=== PATIENT | female | born 1945 | race Caucasian/White ===

== ENCOUNTER → 2017-04-20 | Outpatient (CLI) | payer MEDICARE ==
[~2017-04-20] MED LIST: ASCO500T20 PO; ASP325TEC PO; ASP81CT PO; ASP81TEC PO; ATOR80TA PO; BACL20TA PO; BIMA2.5D4 OU; BNZ10T PO; BUPR150T PO; CHOL400C8 PO; CLPD75T PO; CYAN10007 PO; DCS100C PO; DICL75TA2 PO; DORZ10DR19 OU; FERR-57 PO; FLUT16SP22 NS; FOLI0.4T2 PO; KRIL1CAP12 PO; METO50TA7 PO; MISO200T4 PO; OMEP20CA6 PO; PRAV40TA PO; PRED5DRO2I OU; TRAM50TA2 PO; TRAV0.004S OU; [UNRECOGNIZED DRUG - REMARK]
[2017-04-20 11:54] LABS: BASOPHILS % (AUTO) 1 % (0-10); EOSINOPHILS # (AUTO) 0.1 10^3/uL (0.0-0.3); EOSINOPHILS % (AUTO) 2 % (0-10); LYMPHOCYTES # (AUTO) 0.5 X 10^3 (1.0-4.0); LYMPHOCYTES % (AUTO) 8 % (12-44); MEAN CORPUSCULAR HEMOGLOBIN 30 PG (25-34); MEAN CORPUSCULAR HGB CONC 32 G/DL (32-36); MEAN CORPUSCULAR VOLUME 95 FL (80-99); MEAN PLATELET VOLUME 10.7 FL (7.4-10.4); MONOCYTES # (AUTO) 0.8 X 10^3 (0.0-1.0); MONOCYTES % (AUTO) 12 % (0-12); NEUTROPHILS # (AUTO) 5.2 X 10^3 (1.8-7.8); NEUTROPHILS % (AUTO) 79 % (42-75); PLATELET COUNT 175 10^3/uL (130-400); RED BLOOD COUNT 4.47 10^6/uL (4.35-5.85); RED CELL DISTRIBUTION WIDTH 18.5 % (10.0-14.5); WHITE BLOOD COUNT 6.6 10^3/uL (4.3-11.0)
[2017-04-20 12:19] LABS: EOSINOPHILS % (MANUAL) 4 %; ERYTHROCYTE SEDIMENTATION RATE 57 MM/HR (0-30); LYMPHOCYTES % (MANUAL) 8 %; NEUTROPHILS % (MANUAL) 76 %
[2017-04-20 12:24] LABS: ALANINE AMINOTRANSFERASE 17 U/L (0-55); ALBUMIN 3.2 G/DL (3.2-4.5); ANION GAP 8 MMOL/L (5-14); ASPARTATE AMINO TRANSFERASE 19 U/L (5-34); BILIRUBIN,TOTAL 0.5 MG/DL (0.1-1.0); BLOOD UREA NITROGEN 35 MG/DL (7-18); BUN/CREATININE RATIO 56; CALCIUM 9.1 MG/DL (8.5-10.1); CARBON DIOXIDE 31 MMOL/L (21-32); CHLORIDE 102 MMOL/L (98-107); CREATININE SERUM 0.63 MG/DL (0.60-1.30); GFR ESTIMATED > 60; GLUCOSE 88 MG/DL (70-105); MAGNESIUM 2.2 MG/DL (1.8-2.4); POTASSIUM 4.4 MMOL/L (3.6-5.0); SODIUM 141 MMOL/L (135-145); TOTAL PROTEIN 6.8 G/DL (6.4-8.2)
[2017-04-20 12:44] LABS: THYROID STIMULATING HORMONE 0.77 UIU/ML (0.35-4.94)
== END ==
LOC: LAB 11:30
PROVIDERS: ATTEND Internal Medicine Cardiovascular Disease
DX: R06.02 Shortness of breath (principal); R07.89 Other chest pain; I25.10 Atherosclerotic heart disease of native coronary artery without angina pectoris; I65.23 Occlusion and stenosis of bilateral carotid arteries; G93.5 Compression of brain; I48.0 Paroxysmal atrial fibrillation; Z95.1 Presence of aortocoronary bypass graft
CPT/HCPCS: 36415; 80053; 83735; 84443; 85007; 85027; 85652

== ENCOUNTER → 2017-05-02 | Outpatient (CLI) | payer MEDICARE ==
--- NOTE | 2017-05-04 06:37 | ECHOCARDIOGRAPHY REPORT ---
DATE OF SERVICE: 05/02/2017 ECHOCARDIOGRAM PROCEDURE PERFORMED: Echocardiography report. ORDERING PHYSICIAN: Dr. Duncan. PRIMARY PHYSICIAN: Dr. Guerra. CLINICAL DIAGNOSIS: Chest discomfort, shortness of breath. MEASUREMENTS: Aortic root 3.5, LV diameter diastolic 4.9, IVS thickness, diastolic 0.8. LVPW thickness 0.8, left atrium 5.2. DESCRIPTION: Two dimensional echocardiography shows well-preserved global left ventricular systolic function. No distinct regional wall motion abnormalities seen. Left ventricular ejection fraction is approximately 55%. There is moderate mitral annular calcification and moderate aortic valve sclerosis. Aortic, mitral and tricuspid valve leaflets show fair to good leaflet excursion. There is no significant pericardial effusion. Doppler imaging shows moderate mitral and tricuspid regurgitation. Pulmonary artery systolic pressure is estimated at approximately 75 mmHg. There is no Doppler evidence of significant valvular stenosis. Peak pressure gradient across the aortic valve is 28 mmHg with mean gradient of approximately 14 mmHg and aortic valve area of approximately 1.5 sq cm. Doppler imaging also shows moderate mitral regurgitation. There is no Doppler evidence of any significant mitral stenosis. There is marked biatrial enlargement. Inferior vena cava appears mildly dilated but does exhibit inspiratory collapse. CONCLUSIONS: 1. Pulmonary hypertension with an estimated pulmonary systolic pressure of approximately 75 mmHg. 2. Global left ventricular systolic function with ejection fraction approximately 55%. 3. Moderate mitral annular calcification without evidence of mitral stenosis. 4. Aortic valve sclerosis and mild aortic stenosis with a valve area of approximately 1.5 sq cm. 5. Moderate mitral and tricuspid regurgitation. Job ID: [id number] DocumentID: [id number] Dictated Date: 05/03/2017 14:17:50 Engineer System Administrator Date: 05/03/2017 15:22:16 Dictated By: SCOTT DUNCAN MD, MA, FACP, FACC,
== END ==
LOC: CARD 09:17
PROVIDERS: ATTEND Internal Medicine Cardiovascular Disease
DX: R07.89 Other chest pain (principal); R06.02 Shortness of breath; I25.10 Atherosclerotic heart disease of native coronary artery without angina pectoris; I65.23 Occlusion and stenosis of bilateral carotid arteries; G93.5 Compression of brain; I48.0 Paroxysmal atrial fibrillation; Z95.1 Presence of aortocoronary bypass graft
CPT/HCPCS: 93306

== ENCOUNTER → 2017-05-03 | Outpatient (CLI) | payer MEDICARE ==
[~2017-05-03] MED LIST changes: +CATHETER FLUSH 10 ML SYR IV PRN; +REGADENOSON 0.4 MG/5 ML SYR (LEXISCAN) IV ONE
[2017-05-03 09:36] VITALS: BP 162/78
--- NOTE | 2017-05-04 13:38 | STRESS TEST ---
DATE OF SERVICE: 05/03/2017 RESTING AND POST REGADENOSON TECHNETIUM 99M TETROFOSMIN SPECT CT IMAGING ORDERING PHYSICIAN: Dr. Duncan. PRIMARY PHYSICIAN: Dr. Bingham. CLINICAL DIAGNOSES: Chest discomfort, shortness of breath, and coronary artery disease. Resting images were carried out after injection of 10.94 mCi technetium-99m tetrofosmin. Subsequently, we gave 0.4 mg regadenoson which was followed by 30 mCi technetium-99m tetrofosmin for stress imaging. The electrocardiogram showed sinus rhythm with incomplete right bundle branch block throughout the study. The electrocardiogram did not change significantly with the regadenoson infusion. She tolerated the procedure well. Review of images at rest and following stress does not indicate any distinct perfusion defects consistent with significant myocardial ischemia or infarction. Some degree of diaphragmatic attenuation of the inferior wall is seen both at rest and following regadenoson infusion. Gated images show normal regional wall motion and normal global left ventricular systolic function. Left ventricular ejection fraction is calculated to be 69%. Left ventricular end-diastolic volume is 71 mL. TID is absent (1.09). CONCLUSIONS: 1. No evidence of any significant myocardial ischemia or infarction on this study. 2. Normal regional wall motion. 3. Normal global left ventricular systolic function with a calculated ejection fraction of 69%. Job ID: [id number] DocumentID: [id number] Dictated Date: 05/04/2017 09:34:52 Clinical Studies Specialist Date: 05/04/2017 10:57:08 Dictated By: SCOTT DUNCAN MD, MA, FACP, FACC,
== END ==
LOC: CARD 07:21
PROVIDERS: ATTEND Internal Medicine Cardiovascular Disease
DX: I48.0 Paroxysmal atrial fibrillation (principal); R07.89 Other chest pain; R06.02 Shortness of breath; I25.10 Atherosclerotic heart disease of native coronary artery without angina pectoris; I65.23 Occlusion and stenosis of bilateral carotid arteries; G93.5 Compression of brain; Z95.1 Presence of aortocoronary bypass graft
CPT/HCPCS: 78452; 93017

== ENCOUNTER → 2017-05-17 | Outpatient (CLI) | payer MEDICARE ==
[~2017-05-17] MED LIST changes: -CATHETER FLUSH 10 ML SYR IV PRN; -REGADENOSON 0.4 MG/5 ML SYR (LEXISCAN) IV ONE
--- NOTE | 2017-05-17 12:41 | Diagnostic Imaging Report ---
EXAMINATION: AP and lateral views of the chest. INDICATION: Shortness of breath. Pulmonary hypertension. FINDINGS: The heart is markedly enlarged. There is pulmonary vascular congestion. Moderate bilateral effusions are present with bibasilar opacities, presumably atelectasis from the effusions. There is no pneumothorax. Sternotomy wires are seen. IMPRESSION: Marked cardiomegaly with pulmonary vascular congestion. There are moderate bilateral pleural effusions with associated lower lobe opacities, presumably related to atelectasis. Dictated by: Dictated on workstation # [id number]
== END ==
LOC: RAD 11:00
PROVIDERS: ATTEND Nurse Practitioner Family
DX: I51.7 Cardiomegaly (principal); J90 Pleural effusion, not elsewhere classified; R06.02 Shortness of breath; I27.2 Other secondary pulmonary hypertension
CPT/HCPCS: 71020

== ENCOUNTER → 2020-05-20 | Outpatient (CLI) | payer MEDICARE ==
[~2020-05-20] VITALS: Ht 167 cm; Wt 74.0 kg
[~2020-05-20] MED LIST changes: +CATHETER FLUSH 10 ML SYR IV PRN; +REGADENOSON 0.4 MG/5 ML SYR (LEXISCAN) IV ONE
[2020-05-20 12:27] VITALS: BP 132/88
[2020-05-20 12:30] VITALS: BP 130/84
--- NOTE | 2020-05-20 15:53 | STRESS TEST ---
DATE OF SERVICE: 05/20/2020 RESTING AND POST REGADENOSON TECHNETIUM-99M TETROFOSMIN SPECT CT IMAGING ORDERING PHYSICIAN. Dr. Bingham. CLINICAL DIAGNOSES: Coronary artery disease. Baseline images were carried out after injection of 10.68 mCi of technetium-99m Tetrofosmin. This was followed by 0.4 regadenoson and 29.7 mCi of technetium-99m Tetrofosmin for stress imaging. The electrocardiogram showed sinus rhythm at baseline. It did not change significantly with the regadenoson infusion. Review of images at rest and following stress does not indicate any significant perfusion defects consistent with myocardial ischemia or infarction. Gated images show normal global left ventricular systolic function with normal regional wall motion. Left ventricular ejection fraction is calculated to be 72%. Left ventricular end diastolic volume is 61 mL. TID is absent (1). CONCLUSIONS: 1. No evidence of any significant myocardial ischemia or infarction. 2. Normal regional wall motion. 3. Normal global left ventricular systolic function with a calculated ejection fraction of 72%. Job ID: [id number] DocumentID: [id number] Dictated Date: 05/20/2020 15:30:39 Electroplating Technician Date: 05/20/2020 15:52:46 Dictated By: SCOTT DAVIES MD, MA, FACP, FACC,
== END ==
LOC: CARD 10:33
PROVIDERS: ATTEND Nurse Practitioner Family
DX: I25.10 Atherosclerotic heart disease of native coronary artery without angina pectoris (principal); I70.0 Atherosclerosis of aorta; I35.1 Nonrheumatic aortic (valve) insufficiency; I77.89 Other specified disorders of arteries and arterioles; I48.0 Paroxysmal atrial fibrillation; G47.33 Obstructive sleep apnea (adult) (pediatric)
CPT/HCPCS: 78452; 93017; 93306; A9502

== ENCOUNTER → 2021-11-05 | Outpatient (CLI) | payer MEDICARE ==
[~2021-11-05] MED LIST changes: -CATHETER FLUSH 10 ML SYR IV PRN; -REGADENOSON 0.4 MG/5 ML SYR (LEXISCAN) IV ONE
== END ==
LOC: CARD 14:00
PROVIDERS: ATTEND Nurse Practitioner Family
DX: I08.3 Combined rheumatic disorders of mitral, aortic and tricuspid valves (principal)
CPT/HCPCS: 93306

== ENCOUNTER 2021-12-15 08:00 | Day surgery (SDC) | payer MEDICARE ==
[~2021-12-15] VITALS: Ht 165.1 cm; Wt 68.5 kg
[2021-12-15] VITALS (10 sets, daily range): BP systolic 113–171; BP diastolic 57–87
[2021-12-15 07:36] LABS: HEMOGLOBIN 11.7 g/dL (11.5-16.0); MEAN PLATELET VOLUME 11.4 fL (9.0-12.2); WHITE BLOOD COUNT 4.4 10^3/uL (4.3-11.0)
[2021-12-15 07:46] LABS: INR 0.9 (0.8-1.4); PROTHROMBIN TIME PATIENT 12.2 SEC (12.2-14.7)
[2021-12-15 07:52] LABS: ALBUMIN 3.8 GM/DL (3.2-4.5); BILIRUBIN,TOTAL 0.3 MG/DL (0.1-1.0); CALCIUM 8.9 MG/DL (8.5-10.1); CREATININE SERUM 0.96 MG/DL (0.60-1.30); POTASSIUM 4.3 MMOL/L (3.6-5.0); TOTAL PROTEIN 6.8 GM/DL (6.4-8.2)
[~2021-12-15 08:00] MED LIST changes: +HEParin (CATH LAB) 2,000 ML IV ONE; +LIDOCAINE 1% INJ 20 ML VIAL ONE; +MIDAZOLAM 5 MG/5 ML (VERSED) VIAL ONE; +NS IV 1000 ML 1,000 ML IV SCH; +NS IV 1000 ML 1,000 ML ONE; +fentaNYL INJ 100 MCG/2 ML AMP ONE
[2021-12-15] MEDS ORDERED: [UNRECOGNIZED DRUG - OTHER] XX (08:01)
[2021-12-15] MEDS ORDERED: ZINC50TA51 PO (08:01)
[2021-12-15] MEDS ORDERED: MELA3TAB41 PO (08:01)
[2021-12-15] MEDS ORDERED: [UNRECOGNIZED DRUG - OTHER] PO (08:01)
[2021-12-15] MEDS ORDERED: ALEN70TA80 PO (08:01)
[2021-12-15] MEDS ORDERED: GABA-486 PO (08:01)
[2021-12-15] MEDS ORDERED: FURO40TA4 PO (08:01)
[2021-12-15] MEDS ORDERED: AMIO400T5 PO (08:01)
[2021-12-15] MEDS ORDERED: POTA8CAP20 PO (08:01)
[2021-12-15] MEDS ORDERED: DORZ10DR22 OU (08:01)
[2021-12-15] MEDS ORDERED: BACI1TAB3 PO (08:01)
[2021-12-15] MEDS ORDERED: CLN.1T PO (08:01)
[2021-12-15] MEDS ORDERED: CALC1TAB PO (08:01)
[2021-12-15] MEDS ORDERED: UBID100C17 PO (08:01)
[2021-12-15] MEDS ORDERED: ASPI-1238 PO (08:01)
[2021-12-15] MEDS ORDERED: B6/F1CAP PO (08:01)
[2021-12-15] MEDS ORDERED: POTA10CA43 PO (10:29)
[2021-12-15] MEDS ORDERED: FURO80TA3 PO (10:29)
[2021-12-15] MEDS ORDERED: PATIENT MAY USE OWN MEDS, ALL PO SCH (10:30)
[2021-12-15] MEDS ORDERED: NS IV 1000 ML 1,000 ML IV SCH (10:30)
--- NOTE | 2021-12-15 10:34 | Discharge Inst-Cardiology ---
Discharge Inst-Cardiac Discharge Medications New Medications: Furosemide (Furosemide) 80 Mg Tablet 80 MG PO DAILY for 30 Days, #30 TAB 3 Refills Potassium Chloride (Potassium Chloride) 10 Meq Capsule.er 10 MEQ PO BID for 30 Days, #60 CAP 3 Refills Continued Medications: Alendronate Sodium (Alendronate Sodium) 70 Mg Tablet 70 MG PO WEEK, TAB Amiodarone HCl (Amiodarone HCl) 400 Mg Tablet 400 MG PO DAILY, TAB Ascorbic Acid (Vitamin C 500 Mg) 500 Mg Tablet 500 MG PO DAILY Aspirin (Aspirin EC) 81 Mg Tablet.dr 81 MG PO DAILY, TAB B6/Folic/B12/Coffee/Phosphatid (Neuriva Plus Brain Perform Cap) 1 Each Capsule 1 EACH PO DAILY, CAP Bacillus Coagulans (Probiotic) 1 Each Tab.chew 2 TAB PO DAILY, TAB Baclofen (Baclofen) 20 Mg Tablet 20 MG PO TID Benazepril Hcl (Lotensin 10 Mg) 10 Mg Tablet 10 MG PO DAILY Bimatoprost (Lumigan) 2.5 Ml Drops 1 DROP OU HS 0.005% Calcium Carbonate/Vitamin D3 (Caltrate 600 + D Tablet) 1 Each Tablet 1 EACH PO DAILY, TAB Clonidine HCl (Clonidine HCl) 0.1 Mg Tablet 0.1 MG PO PRN, TAB [Cortia Xt] () 120 MG PO DAILY Cyanocobalamin (Vitamin B12) 1,000 Mcg Tablet.sa 1000 MCG PO DAILY Docusate Sodium (Colace) 100 Mg Capsule 100 MG PO BID Dorzolamide HCl/Timolol Maleat (Cosopt Eye Drops) 10 Ml Drops 1 DROP OU BID, DROPS Ferrous Sulfate (Ferrous Sulfate) 325 Mg Tablet 325 MG PO DAILY Folic Acid (Folic Acid) 0.4 Mg Tablet 0.4 MG PO DAILY Gabapentin (Gabapentin) 100 Mg Capsule 100 MG PO PRN for Neuropathic pain, CAP Krill/Odd-3/Dha/Epa/Lipids (Krill Oil 300 Mg Softgel) 1 Each Capsule 300 MG PO DAILY Melatonin (Melatonin) 3 Mg Tablet.er 3 MG PO HS, TAB Omeprazole (Prilosec) 20 Mg Capsule.dr 40 MG PO DAILY TAKES 2 (20MG) CAPSULES DAILY Pravastatin Sodium (Pravachol) 40 Mg Tablet 40 MG PO HS Prednisolone Acetate (Pred Forte 1%) 5 Ml Drops.susp 1 DROP OU DAILY Tramadol Hcl (Tramadol Hcl) 50 Mg Tablet 50 MG PO QID Ubidecarenone (Coq-10) 100 Mg Capsule 100 MG PO DAILY, CAP Zinc Amino Acid Chelate (Zinc) 50 Mg Tablet 50 MG PO DAILY, TAB Discontinued Medications: Diclofenac Sodium (Diclofenac Sodium) 75 Mg Tablet.dr 75 MG PO TID Furosemide (Furosemide) 40 Mg Tablet 40 MG PO DAILY, TAB Potassium Chloride (Potassium Chloride) 8 Meq Capsule.er 16 MEQ PO DAILY AFTER [place] PULLIAM ALI MD FACP FAC CCDS Dec 15, 2021 10:34
--- NOTE | 2021-12-15 10:35 | Discharge Inst-Post CATH ---
Discharge Inst-CATH/EP Post Cardiac Cath/EP D/C Inst Follow Up/Plan F/u with Dr Duncan in one week ACTIVITY * Go Home directly and rest. * Limit activity of the leg (or wrist if it was used) for 7 days including aerobics, swimming, jogging, bicycling, etc. * Restrict stair-climbing for 7 days if possible, if not, climb up with your non-cath leg, then bring together on the same step. * Avoid lifting, pushing, pulling or excessive movement of the affected e xtremity for 7 days. * Customary sexual activity may be resumed after 2 days-use caution not to use a position that strains or causes pain to the affected extremity. * No driving for 24 hours. * NO SMOKING. * Avoid straining for bowel movements for 7 days. * Gentle walking on level ground is allowed. * Returning to work will depend on the type of procedure and the results. Your doctor will discuss this with you. CALL YOUR DOCTOR FOR ANY OF THE FOLLOWING: *If bleeding from the puncture site occurs- Apply gentle pressure to site with clean cloth and call your doctor or EMS. * If a knot or lump forms under the skin, increases in size, or causes pain. * If bruising appears to be worsening or moving further down your leg instead of disappearing. * Temperature above 101 F. CARE OF YOUR GROIN INCISION; * Bruising or purple discoloration of the skin near the puncture site is common. * You may shower only, no bathtub bathing for 5 days. Be careful to avoid slipping as your leg may feel stiff. * If a closure device was used on your femoral artery, please see the attached guide regarding care of the device and your leg. * Leave dressing on FOR 24 hours. CARE OF YOUR WRIST INCISION; * Bruising or purple discoloration of the skin near the puncture site is common. * You may shower. * DO NOT submerge wrist. * Leave dressing on FOR 24 hours. SCOTT DUNCAN MD FACP FAC CCDS Dec 15, 2021 10:35
--- NOTE | 2021-12-15 10:41 | Cardiac Procedure Note-CS/ASA ---
Pre-Procedure Note Pre-Op Procedure Note H&P Reviewed The H&P was reviewed, patient examined and no changes noted. Date H&P Reviewed: Dec 15, 2021 Time H&P Reviewed: 08:30 Conscious Sedation Pre-Proced Time 08:30 ASA Score 3 For ASA 3 and 4: Consider anesthesia and medical clearance. Also, for patients with a history of failed moderate sedation consider anesthesia. Airway Lungs Heart ASA score ASA 1: a normal healthy patient ASA 2: a patient with a mild systemic disease (mid diabetes, controlled hypertension, obesity ASA 3: a patient with a severe systemic disease that limits activity (angina, COPD, prior Myocardial infarction) ASA 4: a patient with an incapacitating disease that is a constant threat to life (CHF, renal failure) ASA 5: a moribund patient not expected to survive 24 hrs. (ruptured aneurysm) ASA 6: a declared brain- patient whose organs are being harvested. For emergent operations, add the letter E after the classification Mallampati Classification Grade 3 Sedation Plan Analgesia, Amnesia, Plan communicated to team members, Discussed options with patient/fam, Discussed risks with patient/fam The patient is an appropriate candidate to undergo the planned procedure, sedation, and anesthesia. The patient immediately re-assessed prior to indication. SCOTT DAVIES MD FACP FAC CCDS Dec 15, 2021 10:41
--- NOTE | 2021-12-15 12:20 | CARDIAC CATHETERIZATION ---
DATE OF SERVICE: 12/15/2021 CARDIAC CATHETERIZATION REPORT INDICATION FOR PROCEDURE: The patient is a 76-year-old lady, who is known to have coronary artery disease and has had coronary artery bypass surgery. Echocardiography has indicated significant aortic stenosis and pulmonary hypertension. Because of progressive symptoms of shortness of breath and the echo findings, complete heart catheterization was recommended. Informed consent was obtained. DESCRIPTION OF PROCEDURE: She was brought to the cardiac catheterization laboratory in a fasting state. Right groin was prepared and draped in the usual sterile fashion. Lidocaine 1% was used for local anesthesia. Modified Seldinger technique was used to advance a 5-[place] sheath into the right femoral artery and a 7-[place] sheath into the right femoral vein. We used a 7-Citizen [place] Gladbrook-Apolinar catheter to carry out right heart catheterization and to measure oxygen saturation in the various right heart chambers. The Gladbrook-Apolinar catheter was then removed. We used a 5-Cit[place] pigtail catheter to carry out aortic root angiography. Attempts at crossing the aortic valve with a wire were unsuccessful. We did not make excessive attempts at trying to cross the valve because a good echo is on record. We used a 5-Citizen [place] JR4 catheter to engage the right coronary artery and to engage the aortocoronary graft. We used an ELVA catheter to engage the left internal mammary artery graft to the left anterior descending artery. Angiography of the right femoral artery was carried out through the sheath. At the conclusion of the procedure, Mynx was used to achieve hemostasis. She tolerated the procedure well. HEMODYNAMICS: Pulmonary artery pressure is 67/25 with a mean of 45 mmHg. Mean pulmonary wedge pressure is 26 mmHg. Right atrial mean pressure is 11 mmHg. Right ventricular pressure is 71/12. Cardiac output by thermodilution is 3.47 with an index of 1.98. AORTIC ROOT ANGIOGRAPHY: Aortic root angiography indicated significant tortuosity of the thoracic and abdominal aorta. There did not appear to be significant aortic aneurysm or aortic regurgitation. Calcification of the aortic valve leaflets is seen. The aortic valve leaflets excursion is diminished. CORONARY ANGIOGRAPHY: Left main coronary artery has 70% to 80% distal stenosis in the ostial, left circumflex artery has 80% to 90% stenosis. There is moderate ostial disease of the left anterior descending artery. A ramus intermedius artery has moderate ostial disease. The right coronary artery is dominant. It has severe diffuse disease in its distal portion. AORTOCORONARY GRAFT: The aortocoronary graft to the distal right coronary artery is patent and does not exhibit significant disease. There is good distal flow in the right coronary via the graft, although the distal right coronary artery is of a small caliber. The aortocoronary graft to the left circumflex is a patent and exhibits good antegrade and retrograde flow. LEFT INTERNAL MAMMARY GRAFT ANGIOGRAPHY: The left internal mammary artery graft to the mid left anterior descending artery is widely patent and free of significant disease. It exhibits good antegrade and retrograde flow in the left anterior descending. CONCLUSIONS: 1. Severe pulmonary hypertension with a mean pulmonary artery systolic pressure of 45 mmHg. The mean pulmonary capillary wedge pressure is 26 mmHg. 2. Severe [place] coronary artery disease including 80% to 90% trifurcation stenosis of the distal left main coronary and diffuse severe distal disease in the right coronary artery. 3. Patent aortocoronary graft to the distal right coronary. 4. Patent aortocoronary graft to an obtuse marginal of the left circumflex. 5. Patent left internal mammary artery graft to mid left anterior descending. DISCUSSION AND RECOMMENDATIONS: Because of evidence of pulmonary hypertension that appears at least partially due to congestive heart failure (elevated wedge pressure), we will initiate a diuretic regimen. She also has severe aortic stenosis. We will refer her to cardiovascular surgery for evaluation for valve replacement. Close outpatient followup is advised. Job ID: [id number] DocumentID: [id number] Dictated Date: 12/15/2021 10:16:05 Window Trimmer Date: 12/15/2021 12:19:35 Dictated By: SCOTT DAVIES MD, MA, FACP, FACC,
== END 2021-12-15 14:08 | disposition home or self-care (01) ==
LOC: CATH 08:00 → SDC 10:32 → CATH 14:08
PROVIDERS: ATTEND Internal Medicine Cardiovascular Disease
DX: I25.10 Atherosclerotic heart disease of native coronary artery without angina pectoris (principal); I27.20 Pulmonary hypertension, unspecified; I35.0 Nonrheumatic aortic (valve) stenosis; I50.9 Heart failure, unspecified; Z95.1 Presence of aortocoronary bypass graft
CPT/HCPCS: 36221; 80053; 80061; 85027; 85610; 85730; 87081; 93455; C1760; C1894 ×2; 36415